=== PATIENT | male | born 1950 | race Caucasian/White ===

== ENCOUNTER 2019-12-26 17:39 | Emergency (ER) | payer MEDICARE, OTHER ==
--- NOTE | 2019-12-26 17:58 | EDM.PDOC ---
ED HPI GENERAL MEDICAL PROBLEM - General Stated Complaint: WEAKNESS Time Seen by Provider: 12/26/19 17:40 Source of Information: Reports: Patient History Limitations: Reports: No Limitations - History of Present Illness INITIAL COMMENTS - FREE TEXT/NARRATIVE: generalized weakness , blurred vision, felt weak, almost fell had nausea and vomiting felt better after vomiting believes he ate some old cookies in freezer left by daughter's boyfriend who told him that it had marijuana in it valve replaced in october Onset: Today Onset Date: 12/26/19 Location: Reports: Generalized Severity: Moderate Context: Reports: Activity Associated Symptoms: Reports: Confusion, Diaphoresis, Malaise, Nausea/Vomiting, Weakness - Related Data Allergies Allergy/AdvReac Type Severity Reaction Status Date / Time No Known Allergies Allergy Verified 07/22/14 12:13 Home Meds: Home Meds Aspirin [Children's Aspirin] 81 mg PO DAILY 03/04/14 [History] atorvaSTATin [Lipitor] 80 mg PO DAILY 03/04/14 [History] Cholecalciferol (Vitamin D3) [Vitamin D3] 125 mg PO DAILY 12/26/19 [History] Ezetimibe 10 mg PO DAILY 12/26/19 [History] Montelukast [Singulair] 10 mg PO DAILY 12/26/19 [History] metFORMIN HCl [Metformin HCl] 500 mg PO TID 12/26/19 [History] ED ROS GENERAL - Review of Systems Review Of Systems: Comprehensive ROS is negative, except as noted in HPI. Constitutional: Reports: Malaise, Weakness HEENT: Reports: No Symptoms Respiratory: Reports: No Symptoms Cardiovascular: Reports: No Symptoms Endocrine: Reports: Fatigue GI/Abdominal: Reports: Anorexia Musculoskeletal: Reports: No Symptoms Neurological: Reports: Confusion, Dizziness Psychiatric: Reports: No Symptoms ED EXAM, GENERAL - Physical Exam Exam: See Below Exam Limited By: No Limitations General Appearance: Alert, WD/WN, No Apparent Distress Eye Exam: Bilateral Eye: EOMI Ears: Normal External Exam Ear Exam: Bilateral Ear: Auricle Normal, Canal Normal Nose: Normal Inspection, Normal Mucosa Head: Atraumatic Neck: Supple, Non-Tender Respiratory/Chest: Lungs Clear Cardiovascular: Normal Peripheral Pulses, Regular Rate, Rhythm Back Exam: Full Range of Motion Extremities: Normal Range of Motion Neurological: Alert, Oriented, CN II-XII Intact EKG INTERPRETATION Rhythm: NSR [place]: Normal P-Wave: Present QRS: Normal ST-T: Normal Comparison: NA - No Prior EKG Course - Vital Signs Last Recorded V/S: Last Vital Signs Temp 36.5 C 12/26/19 17:40 Pulse 68 12/26/19 17:40 Resp 14 12/26/19 17:40 BP 116/75 12/26/19 17:40 Pulse Ox 95 12/26/19 17:40 - Orders/Labs/Meds Orders: Active Orders 24 hr Category Date Time Status Accu Check [Blood Glucose Check, Bedside] [RC] ONETIME Care 12/26/19 19:19 Active Chest 1V Frontal [CR] Stat Exams 12/26/19 17:55 Taken Sodium Chloride 0.9% [Normal Saline] 1,000 ml Med 12/26/19 18:00 Active IV ASDIRECTED Medication Orders Sodium Chloride (Normal Saline) 1,000 mls @ 999 mls/hr IV ASDIRECTED JEMIMA Last Admin: 12/26/19 18:40 Dose: 999 mls/hr Labs: Laboratory Tests 12/26/19 12/26/19 12/26/19 Range/Units 19:16 19:16 19:25 WBC 7.5 (4.5-12.0) X10-3/uL RBC 4.64 (4.30-5.75) x10(6)uL Hgb 13.2 L (13.5-17.8) g/dL Hct 40.7 (30.0-51.3) % MCV 87.7 (80-96) fL MCH 28.5 (27.7-33.6) pg MCHC 32.5 (32.2-35.4) g/dL RDW 13.1 (11.5-15.5) % Plt Count 160 (125-369) X10(3)uL MPV 8.0 (7.4-10.4) fL Neut % (Auto) 89.0 H (46-82) % Lymph % (Auto) 8.7 L (13-37) % [place] % (Auto) 1.9 L (4-12) % Eos % (Auto) 0 L (1.0-5.0) % Baso % (Auto) 0 (0-2) % Neut # (Auto) 6.8 (1.6-8.3) # Lymph # (Auto) 0.6 (0.6-5.0) # [place] # (Auto) 0.1 (0.0-1.3) # Eos # (Auto) 0.0 (0.0-0.8) # Baso # (Auto) 0.0 (0.0-0.2) # PT (9.0-11.1) sec INR (1.00-1.24) Sodium (135-145) mmol/L Potassium (3.5-5.3) mmol/L Chloride (100-110) mmol/L Carbon Dioxide (21-32) mmol/L BUN (7-18) mg/dL Creatinine (0.70-1.30) mg/dL Est Cr Clr Drug Dosing Estimated GFR (MDRD) (>60) BUN/Creatinine Ratio (9-20) Glucose (80-116) mg/dL Calcium (8.6-10.2) mg/dL Magnesium (1.8-2.5) mg/dL Total Bilirubin (0.1-1.3) mg/dL AST (5-25) IU/L ALT (12-36) U/L Alkaline Phosphatase (56-112) IU/L NT-Pro-B Natriuret Pep (<=125) pg/mL Total Protein (6.0-8.0) g/dL Albumin (3.2-4.6) g/dL Globulin g/dL Albumin/Globulin Ratio Urine Color Yellow (YELLOW) Urine Appearance Clear (CLEAR) Urine pH 6.5 (5.0-6.5) Ur Specific [place] 1.015 (1.010-1.025) Urine Protein Negative (NEGATIVE) mg/dL Urine Glucose (UA) Normal (NORMAL) mg/dL Urine Ketones 15 H (NEGATIVE) mg/dL Urine Occult Blood Negative (NEGATIVE) Urine Nitrite Negative (NEGATIVE) Urine Bilirubin Negative (NEGATIVE) Urine Urobilinogen Normal (NEGATIVE) mg/dL Ur Leukocyte Esterase Negative (NEGATIVE) Urine RBC 0-5 (0-5) Urine WBC 0-5 (0-5) Ur Squamous Epith Cells Occasional (NS,R,O) Urine Bacteria Rare H (NS) Urine Opiates Screen Negative (NEGATIVE) Ur Oxycodone Screen Negative (NEGATIVE) Ur Propoxyphene Screen Negative (NEGATIVE) Ur Barbituates Screen Negative (NEGATIVE) Ur Tricyclics Screen Negative (NEGATIVE) Ur Phencyclidine Scrn Negative (NEGATIVE) Ur Amphetamine Screen Negative (NEGATIVE) Urine MDMA Screen Negative (NEGATIVE) U Benzodiazepines Scrn Negative (NEGATIVE) U Cocaine Metab Screen Negative (NEGATIVE) U Marijuana (THC) Screen Positive H (NEGATIVE) 12/26/19 12/26/19 12/26/19 Range/Units 19:25 19:25 19:25 WBC (4.5-12.0) X10-3/uL RBC (4.30-5.75) x10(6)uL Hgb (13.5-17.8) g/dL Hct (30.0-51.3) % MCV (80-96) fL MCH (27.7-33.6) pg MCHC (32.2-35.4) g/dL RDW (11.5-15.5) % Plt Count (125-369) X10(3)uL MPV (7.4-10.4) fL Neut % (Auto) (46-82) % Lymph % (Auto) (13-37) % [place] % (Auto) (4-12) % Eos % (Auto) (1.0-5.0) % Baso % (Auto) (0-2) % Neut # (Auto) (1.6-8.3) # Lymph # (Auto) (0.6-5.0) # [place] # (Auto) (0.0-1.3) # Eos # (Auto) (0.0-0.8) # Baso # (Auto) (0.0-0.2) # PT 23.3 H (9.0-11.1) sec INR 2.55 H (1.00-1.24) Sodium 143 (135-145) mmol/L Potassium 4.3 (3.5-5.3) mmol/L Chloride 105 (100-110) mmol/L Carbon Dioxide 27 (21-32) mmol/L BUN 18 (7-18) mg/dL Creatinine 1.1 (0.70-1.30) mg/dL Est Cr Clr Drug Dosing TNP Estimated GFR (MDRD) > 60 (>60) BUN/Creatinine Ratio 16.4 (9-20) Glucose 104 (80-116) mg/dL Calcium 8.4 L (8.6-10.2) mg/dL Magnesium 2.1 (1.8-2.5) mg/dL Total Bilirubin 0.6 (0.1-1.3) mg/dL AST 31 H (5-25) IU/L ALT 46 H (12-36) U/L Alkaline Phosphatase 63 (56-112) IU/L NT-Pro-B Natriuret Pep 221 H (<=125) pg/mL Total Protein 7.1 (6.0-8.0) g/dL Albumin 3.7 (3.2-4.6) g/dL Globulin 3.4 g/dL Albumin/Globulin Ratio 1.1 Urine Color (YELLOW) Urine Appearance (CLEAR) Urine pH (5.0-6.5) Ur Specific [place] (1.010-1.025) Urine Protein (NEGATIVE) mg/dL Urine Glucose (UA) (NORMAL) mg/dL Urine Ketones (NEGATIVE) mg/dL Urine Occult Blood (NEGATIVE) Urine Nitrite (NEGATIVE) Urine Bilirubin (NEGATIVE) Urine Urobilinogen (NEGATIVE) mg/dL Ur Leukocyte Esterase (NEGATIVE) Urine RBC (0-5) Urine WBC (0-5) Ur Squamous Epith Cells (NS,R,O) Urine Bacteria (NS) Urine Opiates Screen (NEGATIVE) Ur Oxycodone Screen (NEGATIVE) Ur Propoxyphene Screen (NEGATIVE) Ur Barbituates Screen (NEGATIVE) Ur Tricyclics Screen (NEGATIVE) Ur Phencyclidine Scrn (NEGATIVE) Ur Amphetamine Screen (NEGATIVE) Urine MDMA Screen (NEGATIVE) U Benzodiazepines Scrn (NEGATIVE) U Cocaine Metab Screen (NEGATIVE) U Marijuana (THC) Screen (NEGATIVE) Meds: Medications Generic Name Dose Route Start Last Admin Trade Name Freq PRN Reason Stop Dose Admin Sodium Chloride 1,000 mls @ 999 mls/hr 12/26/19 18:00 12/26/19 18:40 Normal Saline IV 999 mls/hr ASDIRECTED JEMIMA Administration Discontinued Medications Generic Name Dose Route Start Last Admin Trade Name Freq PRN Reason Stop Dose Admin Ondansetron HCl 4 mg 12/26/19 18:59 12/26/19 19:09 Zofran IVPUSH 12/26/19 19:00 4 mg ONETIME ONE Administration - Re-Assessments/Exams Free Text/Narrative Re-Assessment/Exam: 12/26/19 20:55 pt given zofran with IVF did feel better discussed labs with him Departure - Departure Time of Disposition: 20:50 Disposition: Home, Self-Care 01 Condition: Fair Clinical Impression: Marijuana intoxication, Vomiting, Dizziness and giddiness Instructions: Dehydration, Adult, [id number], Nausea and Vomiting, Adult, Food Poisoning, [id number] Referrals: Mannie Yuen MD [Primary Care Provider] - Sepsis Event Note - Focused Exam Vital Signs: Vital Signs Temp Pulse Resp BP Pulse Ox 12/26/19 17:40 36.5 C 68 14 116/75 95 Date Exam was Performed: 12/26/19 Time Exam was Performed: 20:50 - My Orders Last 24 Hours: My Active Orders 12/26/19 17:55 Chest 1V Frontal [CR] Stat 12/26/19 18:00 Sodium Chloride 0.9% [Normal Saline] 1,000 ml IV ASDIRECTED 12/26/19 19:19 Accu Check [Blood Glucose Check, Bedside] [RC] ONETIME - Assessment/Plan Last 24 Hours: My Active Orders 12/26/19 17:55 Chest 1V Frontal [CR] Stat 12/26/19 18:00 Sodium Chloride 0.9% [Normal Saline] 1,000 ml IV ASDIRECTED 12/26/19 19:19 Accu Check [Blood Glucose Check, Bedside] [RC] ONETIME
[2019-12-26] MEDS ORDERED: Sodium Chloride 0.9% 1,000 ML IV SCH (18:00)
[2019-12-26] MEDS ORDERED: Ondansetron 4 MG/2 ML SDV IVPUSH ONE (18:59)
--- NOTE | 2019-12-29 10:13 | CR ---
INDICATION: Dizziness. CHEST, ONE VIEW: An AP upright view of the chest was obtained 12/26/19, compared with PA view from 02/11/11. Evidence of interval median sternotomy is noted. The heart appears increased in size compared with the previous study but is not grossly enlarged. Overall EKG leads are noted. The aorta is tortuous. A definite active infiltrate or effusion was not identified. IMPRESSION: 1. No definite acute process. 2. ASHD with post-median sternotomy change. MTDD
== END 2019-12-26 21:10 | disposition home or self-care (01) ==
LOC: FB.ED 17:39
DX: F12.929 Cannabis use, unspecified with intoxication, unspecified (principal); R11.10 Vomiting, unspecified; R42 Dizziness and giddiness
CPT/HCPCS: 36415; 71045; 80053; 80305-QW; 81001; 82962; 83735; 83880; 85025; 85610; 96361; 96374; 99283; 99285-25; J2405; J7030